=== PATIENT | female | born 1985 | race Caucasian/White ===

== ENCOUNTER → 2016-11-02 | Outpatient (REF) | payer BC, MEDICAID ==
[2016-11-02 18:54] LABS: BASO % 0.6 % (0.0-1.0); EOS # 0.1 K/mm3 (0.0-0.50); EOS % 1.7 % (0.0-3.0); LARGE UNSTAINED CELL # 0.1 K/mm3 (0.0-0.4); LARGE UNSTAINED CELL % 1.4 % (0.0-4.0); LYMPH # 2.8 K/mm3 (1.5-4.5); LYMPH % 34.1 % (24.0-44.0); MEAN CORPUSCULAR HEMOGLOBIN 32.1 pg (27.0-33.0); MEAN CORPUSCULAR HGB CONC 33.4 g/dl (32.0-36.5); MEAN CORPUSCULAR VOLUME 96.1 fl (80.0-96.0); MONO # 0.4 K/mm3 (0.0-0.8); MONO % 4.8 % (0.0-5.0); NEUTROPHILS # 4.6 K/mm3 (1.8-7.7); NEUTROPHILS % 57.4 % (36.0-66.0); PLATELET COUNT, AUTOMATED 241 k/mm3 (150-450); RED CELL DISTRIBUTION WIDTH 12.1 % (11.5-14.5)
[2016-11-02 19:09] LABS: ALBUMIN 4.2 GM/DL (3.2-5.2); ALBUMIN/GLOBULIN RATIO 1.35 (1.00-1.93); ALKALINE PHOSPHATASE 81 U/L (45-117); ALT/SGPT 15 U/L (12-78); ANION GAP 8 MEQ/L (8-16); AST/SGOT 10 U/L (15-37); BILIRUBIN,TOTAL 0.3 MG/DL (0.2-1.0); BLOOD UREA NITROGEN 11 MG/DL (7-18); CALCIUM LEVEL 9.4 MG/DL (8.5-10.1); CARBON DIOXIDE LEVEL 26 MEQ/L (21-32); CHLORIDE LEVEL 105 MEQ/L (98-107); CREATININE FOR GFR 0.72 MG/DL (0.55-1.02); GLOMERULAR FILTRATION RATE > 60.0 (>60); GLUCOSE, FASTING 87 MG/DL (70-105); POTASSIUM SERUM 4.1 MEQ/L (3.5-5.1); SODIUM LEVEL 139 MEQ/L (136-145); TOTAL PROTEIN 7.3 GM/DL (6.4-8.2)
[2016-11-02 20:07] LABS: ERYTHROCYTE SEDIMENTATION RATE 22 mm/hr (0-20)
[2016-11-05 00:07] LABS: Lyme Disease IgG/IgM Antibodie <0.91 ISR (0.00-0.90); Lyme Disease IgM Ab Quantitati <0.80 index (0.00-0.79)
== END ==
LOC: M LABDRAW1 16:58
PROVIDERS: ATTEND Internal Medicine Rheumatology
DX: M35.9 Systemic involvement of connective tissue, unspecified (principal); R53.83 Other fatigue; Z79.899 Other long term (current) drug therapy

== ENCOUNTER → 2018-01-17 | Outpatient (REF) | LOC: M SMT 11:41 | DX: M54.5 Low back pain (principal) ==

== ENCOUNTER 2019-05-17 05:45 | Day surgery (SDC) | payer BC, MEDICAID ==
[~2019-05-17] VITALS: Ht 175.3 cm; Wt 101.6 kg
[2019-05-17] VITALS (7 sets, daily range): BP systolic 115–129; BP diastolic 60–70
[~2019-05-17 05:45] MED LIST: TURM500C5 PO
[2019-05-17] MEDS ORDERED: ceFAZolin SOD 2 GM in IV 1 EA IV ONE (06:00)
[2019-05-17] MEDS ORDERED: LR 1,000 ML IV ONE (06:00)
[2019-05-17] MEDS ORDERED: IBUP-1022 PO (06:31)
[2019-05-17] MEDS ORDERED: ONDANSETRON 4MG/2ML VIAL (J2405) As Ordered ONE (06:57)
[2019-05-17] MEDS ORDERED: SUGAMMADEX SODIUM 500 MG/5 ML VIAL (BRIDION) As Ordered ONE (06:57)
[2019-05-17] MEDS ORDERED: ROCURONIUM BROMIDE 50 MG/5 ML VIAL As Ordered ONE (06:57)
[2019-05-17] MEDS ORDERED: LIDOCAINE 2% INJ 100 MG/5 ML SDV (FOR ANES.) As Ordered ONE (06:57)
[2019-05-17] MEDS ORDERED: KETOROLAC 60 MG/2 ML VIAL (J1885) As Ordered ONE (06:57)
[2019-05-17] MEDS ORDERED: propofoL 200 MG/20 ML VIAL As Ordered ONE (06:57)
[2019-05-17] MEDS ORDERED: dexameTHASONE 4 MG/ML 1ML VIAL (J1100) As Ordered ONE (06:58)
[2019-05-17] MEDS ORDERED: fentaNYL 250 MCG/5 ML INJECTION (J3010) As Ordered ONE (06:58)
[2019-05-17] MEDS ORDERED: MIDAZOLAM INJ 2 MG/2 ML VIAL (J2250) As Ordered ONE (06:58)
[2019-05-17] MEDS ORDERED: KETAMINE HCL 200 MG/20 ML VIAL As Ordered ONE (07:51)
[2019-05-17] MEDS ORDERED: GLYCOPYRROLATE INJ 0.2 MG/ML 2 ML VIAL As Ordered ONE (08:10)
[2019-05-17] MEDS ORDERED: ACETAMINOPHEN 1000MG 100ML IV BTL (OFIRMEV) (J0131 PER 10MG) As Ordered ONE (08:19)
[2019-05-17] MEDS ORDERED: ePHEDrine SULFATE 25 MG/5 ML(5MG/ML) SYRINGE As Ordered ONE (09:37)
[2019-05-17] MEDS ORDERED: IBUPROFEN 600 MG TAB PO PRN (10:30)
[2019-05-17] MEDS ORDERED: NORCO, ANEXSIA 5/325MG TABLET (HYDROcodone/ACETAMINOPHEN) PO PRN (10:30)
[2019-05-17] MEDS ORDERED: LR 1,000 ML IV SCH ×2 (10:30→10:45)
[2019-05-17] MEDS ORDERED: oxyCODONE 5MG TAB As Ordered ONE (10:39)
[2019-05-17] MEDS: oxyCODONE 5MG TAB PO PRN ×2 (10:40→11:10)
[2019-05-17] MEDS ORDERED: MORPHINE 1MG/ML IN 0.9% NACL 100ML IV BAG As Ordered ONE (10:42)
[2019-05-17] MEDS: fentaNYL 100 MCG/2 ML INJECTION (J3010) IV PRN ×4 (10:45→11:05)
[2019-05-17] MEDS ORDERED: ONDANSETRON 4MG/2ML VIAL (J2405) IV PRN (10:45)
[2019-05-17] MEDS ORDERED: NALOXONE INJ 0.4 MG/1 ML VIAL (J2310) IV PRN (11:00)
[2019-05-17] MEDS ORDERED: MORPHINE 1MG/ML IN 0.9% NACL 100ML IV BAG IV PRN (11:00)
[2019-05-17] MEDS ORDERED: diphenhydrAMINE INJ 50MG/ML VIAL (J1200) IV PRN (11:00)
[2019-05-17] MEDS ORDERED: EPIDURAL/PCA KEYS XX PRN (11:00)
[2019-05-17] MEDS ORDERED: NALBUPHINE HCL 10 MG/ML AMP (J2300) IV PRN (11:00)
[2019-05-17] MEDS: NORCO, ANEXSIA 5/325MG TABLET (HYDROcodone/ACETAMINOPHEN) PO PRN ×2 (15:18→19:24)
--- NOTE | 2019-05-17 15:52 | RO ---
DATE OF PROCEDURE: 05/17/2019 PREOPERATIVE DIAGNOSIS: Pain, failed ablation, right ovarian pain. POSTOPERATIVE DIAGNOSIS: Pain, failed ablation, right ovarian pain, with addition of right ovarian cyst. OPERATIVE PROCEDURE: Laparoscopic assisted vaginal hysterectomy with right oophorecotmy. The patient had a previous salpingectomy and retains her left ovary. SURGEON: Isadora Mooney MD BEVERAGE HOST: None. ANESTHESIA: General endotracheal anesthesia. BRIEF DESCRIPTION OF PROCEDURE AND FINDINGS: Rosa was brought to the operating room where sufficient general endotracheal anesthesia was induced. She was prepped, draped and positioned in the usual sterile fashion with the uterine manipulator placed after the uterus had been sounded to 8. The bladder emptied and a Beltrán placed, which had the ability to backfill and then attention turned to the abdomen. A transverse semilunar incision was made below the umbilicus. Sharp and blunt dissection were continued to the level of the rectus fascia, which was carefully elevated with Cullen clamps, transversely incised and the peritoneum visualized and entered under direct visualization in open laparoscopic technique. ##0 Vicryl retention sutures were placed and then the reusable trocar Daly was placed for CO2 insufflation and CO2 insufflation was then begun. After adequate CO2 insufflation the peritoneal cavity was visualized. There were normal shiny peritoneal surfaces throughout. The upper abdomen had very little in the way of adhesions, but there were some adhesions in the pelvis consistent with the patient's previous surgeries and adhesions around the right ovary, which was distended with what appeared to be a benign cyst. We drained this directly using the aspirating needle and got clear serous fluid back, which was sent for cytology, but again was very much visually was consistent with a simple cyst. We also had adhesions of that ovary to the pelvic sidewall, but otherwise reassuring findings. A 45 Ensure articulating dissector was used to free the uteroovarian suspensory ligament on the left so that we could leave the ovary in place. We then dissected through the round ligament on the left as well. We did backfill the bladder as needed to be sure we were well away from the bladder as we did this dissection and we also worked our way through the superior aspect of the broad ligament, working towards the uterus, freeing those tissues and using the cold scissors to create a bladder flap. We then turned our the right side and even with Trendelenburg those adhesions kept the bowel fairly close to our necessary field of dissection so a clutch grasper was placed suprapubically and the 2.3 mm clutch grasper was used to manipulate the ovary so that we could visualize and access the infundibulopelvic ligament and carefully cauterize and transect this. We then carefully worked our way through the broad ligament and the round ligament on the right side and having reached approximately the same level as the last and backfilled as needed to be sure we were away from the bladder. We then began manipulating the ovary a little and did confirm that it had some adhesions to the pelvic sidewall. These were cut down just with simple scissors, no cautery, because of the ureter. We released those until we were sure that we could get that ovary from below readily and of course we completed the dissection of the bladder flap using cold scissors, not cautery. We then turned our attention to the pelvic portion of the case. Working pelvically we removed the uterine manipulator, placed the second single-tooth tenaculum, placed the retractors and then carefully incised with the scalpel in a circumferential fashion around the base of the cervix. We then isolated the cardinal ligaments which were then clamped, transected and ligated using the deAlvarez clamps which were used this portion of the case and the SuperCut scissors and #0 Vicryl, which also was used throughout this portion of the case. We then entered posteriorly, clamped, transected and ligated the uterosacrals bilaterally, staying close to the uterus to avoid injury to the ureter. We carefully worked our way up along the lateral aspect of the uterus through the uterine vasculature until we had freed the uterus from its vascular support and on the left side had freed the uterus completely. The remaining connections to the ovary were fairly flimsy on the right side so we went ahead and grasped that ovary with Hawley clamps and transected the pedicle to the ovary so that we could remove the uterus and could see better. We carefully worked our way around that ovary so that we could free it from the remaining adhesions and deliver the ovary as well. I then evaluated those pedicles. We confirmed good hemostasis and no evidence of injury to the bowel, bladder or ureters. We did backfill the bladder again and confirm it and had good hemostasis at those pedicles so we closed angled stitches at the vaginal cuff. Of course we incorporated the ureterosacrals as well and then closed the cuff in a running lock stitch of #0 Vicryl. Good approximation and hemostasis achieved. We then removed the instruments up above. We had already removed the clutch grasper before we went below and placed Dermabond over that wound because it is under where we retracted, so we had closed and dressed that before we went below to protect it from the retraction, but we still had the umbilical trocar and this was removed. We confirmed that we had all of the CO2 out of the abdomen, used the #0 Vicryl retention sutures to close the fascial layer and then used #3-0 Vicryl to close the skin with good approximation and hemostasis at both layers and a dry sterile dressing was then applied. Estimated blood loss for the procedure about 50 mL. Fluids replacement was Crystalloid. Complications: None. CONDITION AND DISPOSITION: Rosa tolerated the procedure well and was recovering in the recovery room in good condition.
[2019-05-17] MEDS ORDERED: NORC1TAB7 PO (19:10)
== END 2019-05-17 19:45 | disposition home or self-care (01) ==
LOC: M SDC 05:45 → M PED 11:50 → M SDC 19:45
PROVIDERS: ATTEND Obstetrics & Gynecology
DX: R10.2 Pelvic and perineal pain (principal); N94.10 Unspecified dyspareunia; K44.9 Diaphragmatic hernia without obstruction or gangrene; K58.8 Other irritable bowel syndrome; Z88.2 Allergy status to sulfonamides; Z88.8 Allergy status to other drugs, medicaments and biological substances; K21.9 Gastro-esophageal reflux disease without esophagitis; K90.89 Other intestinal malabsorption; L40.9 Psoriasis, unspecified; M79.7 Fibromyalgia; F41.9 Anxiety disorder, unspecified; F32.9 Major depressive disorder, single episode, unspecified; M32.10 Systemic lupus erythematosus, organ or system involvement unspecified
CPT/HCPCS: 58571; 88108; 88307; J0131; J0690; J1100; J1885; J2250; J2405; J3010

== ENCOUNTER → 2019-11-22 | Outpatient (REF) | payer BC, MEDICAID ==
[~2019-11-22] MED LIST changes: +IBUP-1022 PO; +NORC1TAB7 PO
== END ==
LOC: M SFHCWAGY 19:17
PROVIDERS: ATTEND Surgery
DX: S21.001A Unspecified open wound of right breast, initial encounter (principal); N64.9 Disorder of breast, unspecified; X58.XXXA Exposure to other specified factors, initial encounter; Y92.9 Unspecified place or not applicable; L82.1 Other seborrheic keratosis; L90.5 Scar conditions and fibrosis of skin